=== PATIENT | male | born 1955 | race Caucasian/White ===

== ENCOUNTER 2018-08-11 23:07 | Inpatient (IN) | payer MEDICARE, OTHER ==
[~2018-08-11] VITALS: Ht 167.6 cm; Wt 63.4 kg
[~2018-08-11 23:07] MED LIST: AMLODIPINE; BENAZEPRIL; LORAZEPAM; METOPROLOL
[2018-08-11] MEDS ORDERED: SOD CHLORIDE 0.9% 500 ML IV STA (23:13)
[2018-08-11] MEDS ORDERED: HYDROmorphONE 1 MG/ML SYG IV STA (23:13)
[2018-08-11] MEDS ORDERED: ONDANSETRON 4 MG INJ IV STA (23:13)
[2018-08-11] MEDS ORDERED: HYDROmorphONE 2 MG/ML SYG IV STA (23:47)
[2018-08-12] MEDS: SOD CHLORIDE 0.9% 1,000 ML IV SCH ×2 (00:58→15:26)
[2018-08-12] MEDS ORDERED: NACL 0.9% 3 ML SYG IV SCH (01:00)
[2018-08-12] MEDS ORDERED: BISACODYL (EC) 5 MG TAB PO PRN (01:00)
[2018-08-12] MEDS ORDERED: ONDANSETRON 4 MG INJ IV PRN (01:00)
[2018-08-12] MEDS ORDERED: DOCUSATE SODIUM 100 MG CAP PO PRN (01:00)
[2018-08-12] MEDS ORDERED: ACETAMINOPHEN 325 MG TAB PO PRN (01:00)
[2018-08-12] MEDS ORDERED: HYDROmorphONE 0.5 MG/0.5 ML SYG IV PRN (01:00)
[2018-08-12] MEDS: HYDROCODONE/APAP (10/325) TAB PO SCH ×4 (01:05→18:30)
--- NOTE | 2018-08-12 01:19 | ERD ---
ER Documentation Chief Complaint Chief Complaint BIBRA.,fr. home,GLF,L leg weakness w/ deformity noted,last chemo IV 08/10/18 HPI Is a 63-year-old male with metastatic cancer comes in with complaints of ground- level fall and left leg deformity via EMS. Apparently patient was walking and at the use leg essentially crumpled underneath him. There is no direct trauma no fall. Apparently his leg just "gave out". Complains of pain. Given fentanyl on route. No head trauma. No loss of consciousness. ROS All systems reviewed and are negative except as per history of present illness. Medications Home Meds Reported Medications [Lorazepam] No Conflict Check 05/04/10 [Benazepril] No Conflict Check 05/04/10 [Amlodipine] No Conflict Check 05/04/10 Metoprolol 05/04/10 Allergies Allergies: Coded Allergies: No Known Allergy (Verified , 05/14/10) PMhx/Soc History of Surgery: No Anesthesia Reaction: No Hx Neurological Disorder: No Hx Respiratory Disorders: No Hx Cardiac Disorders: Yes (HTN, HIGH CHOLESTEROL) Hx Psychiatric Problems: No Hx Miscellaneous Medical Probl: Yes (STAGE 4 LUNG CA) Hx Alcohol Use: No Hx Substance Use: No Hx Tobacco Use: No Smoking Status: Never smoker Physical Exam Vitals Vital Signs Date Temp Pulse Resp B/P (MAP) Pulse Ox O2 O2 Flow FiO2 Time Delivery Rate 08/11/18 98.8 122 18 148/98 100 23:14 (115) 08/11/18 115 15 184/113 100 Room Air 23:13 (136) Physical Exam Const: No acute distress Head: Atraumatic Eyes: Normal Conjunctiva ENT: Normal External Ears, Nose and Mouth. Neck: Full range of motion. No meningismus. Resp: Clear to auscultation bilaterally Cardio: Regular rate and rhythm, no murmurs Abd: Soft, non tender, non distended. Normal bowel sounds Skin: No petechiae or rashes Back: No midline or flank tenderness Ext: No cyanosis, or edema Neur: Awake and alert Psych: Normal Mood and Affect Result Diagram: 08/11/18 2351 08/11/18 2351 Results 24 hrs Laboratory Tests Test 08/11/18 23:51 White Blood Count 5.3 10^3/ul Red Blood Count 3.79 10^6/ul Hemoglobin 11.5 g/dl Hematocrit 34.8 % Mean Corpuscular Volume 91.8 fl Mean Corpuscular Hemoglobin 30.3 pg Mean Corpuscular Hemoglobin Concent 33.0 g/dl Red Cell Distribution Width 13.3 % Platelet Count 91 10^3/UL Mean Platelet Volume 8.9 fl Immature Granulocytes % 0.200 % Neutrophils % 65.6 % Lymphocytes % 30.4 % Monocytes % 2.3 % Eosinophils % 1.3 % Basophils % 0.2 % Nucleated Red Blood Cells % 0.0 /100WBC Immature Granulocytes # 0.010 10^3/ul Neutrophils # 3.5 10^3/ul Lymphocytes # 1.6 10^3/ul Monocytes # 0.1 10^3/ul Eosinophils # 0.1 10^3/ul Basophils # 0.0 10^3/ul Nucleated Red Blood Cells # 0.0 10^3/ul Prothrombin Time 13.0 Sec Prothrombin Time Ratio 1.0 INR International Normalized Ratio 0.97 Activated Partial Thromboplast Time 22.7 Sec Sodium Level 138 mmol/L Potassium Level 3.6 mmol/L Chloride Level 103 mmol/L Carbon Dioxide Level 27 mmol/L Anion Gap 8 Blood Urea Nitrogen 16 mg/dl Creatinine 0.86 mg/dl Est Glomerular Filtrat Rate mL/min > 60 mL/min Glucose Level 111 mg/dl Calcium Level 9.5 mg/dl Total Bilirubin 0.8 mg/dl Direct Bilirubin 0.00 mg/dl Indirect Bilirubin 0.8 mg/dl Aspartate Amino Transf (AST/SGOT) 64 IU/L Alanine Aminotransferase (ALT/SGPT) 67 IU/L Alkaline Phosphatase 49 IU/L Total Protein 7.1 g/dl Albumin 4.0 g/dl Globulin 3.10 g/dl Albumin/Globulin Ratio 1.29 Lipase 104 U/L Current Medications Medications Dose Sig/Lidia Start Time Status Last (Trade) Ordered Route PRN Stop Time Admin Dose Reason Admin Sodium 500 ml @ Q1H STAT 08/11/18 DC 08/11/18 Chloride 500 mls/hr IV 23:13 23:26 08/12/18 00:12 1 mg ONCE STAT 08/11/18 DC 08/11/18 Hydromorphone IV 23:13 23:25 HCl 08/11/18 23:14 (Dilaudid) Ondansetron 4 mg ONCE STAT 08/11/18 DC 08/11/18 HCl (Zofran IV 23:13 23:25 Inj) 08/11/18 23:14 2 mg ONCE STAT 08/11/18 DC 08/11/18 Hydromorphone IV 23:47 23:54 HCl 08/11/18 23:49 (Dilaudid) Sodium 1,000 ml @ [id number] IV 08/12/18 08/12/18 Chloride 80 mls/hr 00:43 00:58 IV Flush 3 ml PER 08/12/18 (NS 3 ml) PROTOCOL IV 01:00 Ondansetron 4 mg Q6H PRN 08/12/18 HCl (Zofran IV 01:00 Inj) NAUSEA/VOMITI NG 650 mg Q6H PRN 08/12/18 Acetaminophen PO .PAIN 1-3 01:00 (Tylenol OR TEMP Tab) 1 mg Q4H PRN 08/12/18 Hydromorphone IV .SEVERE 01:00 HCl PAIN 7-10 (Dilaudid) Docusate 100 mg Q12H PRN 08/12/18 Sodium PO 01:00 (Colace) .CONSTIPATION Bisacodyl 5 mg DAILY PRN 08/12/18 (Dulcolax) PO 01:00 .CONSTIPATION 1 tab Q6H PO 08/12/18 08/12/18 Acetaminophen 01:00 01:05 / Hydrocodone Bitart (Randolph ()) Procedures/MDM X-ray Femur 2V Interpreted by me: Bones: Midshaft fracture with moderate angulation and displacement Joints: [No dislocation] Foreign body: [None] Medical decision makin-year-old male who looks to be a pathological fracture. Patient will be admitted to hospitalist for further evaluation management. Orthopedics on-call consult was placed Departure Diagnosis: Primary Impression: Femur fracture Encounter type: initial encounter Femur location: unspecified portion of femur Fracture type: closed Fracture morphology: unspecified fracture morphology Laterality: unspecified laterality Qualified Codes: S72.90XA - Unspecified fracture of unspecified femur, initial encounter for closed fracture Condition: SULAIMAN Phillips Aug 12, 2018 01:19
[2018-08-12 02:11] VITALS: Ht 167.6 cm; Wt 63.4 kg
[2018-08-12] MEDS ORDERED: METO-336 PO (02:20)
[2018-08-12] MEDS ORDERED: FOLI-49 PO (02:20)
[2018-08-12] MEDS ORDERED: RSV10T PO (02:20)
[2018-08-12] MEDS ORDERED: ZOLP10TA5 PO (02:20)
[2018-08-12 02:35] VITALS: BP 169/95; PULSE 103; RESP 18
[2018-08-12] MEDS ORDERED: ZOLPIDEM 5 MG TAB PO PRN (04:30)
--- NOTE | 2018-08-12 04:31 | HP ---
Date/Time of Note Date/Time of Note DATE: 08/12/18 TIME: 04:16 Assessment/Plan VTE Prophylaxis SCD applied (from Nsg): Yes Pharmacological prophylaxis: NA/contraindicated Pharm contraindication: low risk/ambulating Lines/Catheters IV Catheter Type (from Nrsg): Peripheral IV Urinary Cath still in place: No Assessment/Plan Hospital Course This is a 63-year-old male being admitted to the [facility] floor for: #1 acute pathological left femur fracture: X-ray of the left lower extremity: Acute, closed, comminuted distal diaphyseal fracture of the left femur with valgus and posterior angulation of the major distal fracture fragment. Suspected lipohemarthrosis of the suprapatellar bursa. Given patient's history of chemotherapy will obtain a chest x-ray as well as an echocardiogram to assess heart function. Will trend cardiac enzymes as well. Will obtain a cardiology consultation for preop clearance. Dr. Evans of orthopedics has been consulted by the ER. Pain control. Bedrest. The patient n.p.o. at the current time. IV fluid hydration normal saline. Family is also considering transfer to [facility] after they get in touch with the patient's doctors there. If there is an accepting physician there we will help facilitate transfer, consult case management. #2 lung cancer: With metastasis. The patient sees assembler product a little vent his hospital. Currently on chemotherapy. Further management as per outpatient hematology. #3 diabetes mellitus: Currently not on any medications, will check a hemoglobin A1c #4 hypertension: We will resume patient's home blood pressure medication #5 DVT GI prophylaxis: SCDs to the right lower extremity, no GI prophylaxis indicated Further treatment strategy will be implemented as per the clinical course Result Diagram: 08/11/18 2351 08/11/18 2351 Results 24hrs Laboratory Tests Test 08/11/18 23:51 White Blood Count 5.3 Red Blood Count 3.79 L Hemoglobin 11.5 L Hematocrit 34.8 L Mean Corpuscular Volume 91.8 Mean Corpuscular Hemoglobin 30.3 Mean Corpuscular Hemoglobin Concent 33.0 Red Cell Distribution Width 13.3 Platelet Count 91 L Mean Platelet Volume 8.9 Immature Granulocytes % 0.200 Neutrophils % 65.6 Lymphocytes % 30.4 Monocytes % 2.3 Eosinophils % 1.3 Basophils % 0.2 Nucleated Red Blood Cells % 0.0 Immature Granulocytes # 0.010 Neutrophils # 3.5 Lymphocytes # 1.6 Monocytes # 0.1 L Eosinophils # 0.1 Basophils # 0.0 Nucleated Red Blood Cells # 0.0 Prothrombin Time 13.0 Prothrombin Time Ratio 1.0 INR International Normalized Ratio 0.97 Activated Partial Thromboplast Time 22.7 L Sodium Level 138 Potassium Level 3.6 Chloride Level 103 Carbon Dioxide Level 27 Anion Gap 8 Blood Urea Nitrogen 16 Creatinine 0.86 Est Glomerular Filtrat Rate mL/min > 60 Glucose Level 111 Calcium Level 9.5 Total Bilirubin 0.8 Direct Bilirubin 0.00 Indirect Bilirubin 0.8 Aspartate Amino Transf (AST/SGOT) 64 H Alanine Aminotransferase (ALT/SGPT) 67 Alkaline Phosphatase 49 Total Protein 7.1 Albumin 4.0 Globulin 3.10 Albumin/Globulin Ratio 1.29 Lipase 104 HPI/ROS Admit Date/Time Admit Date/Time Aug 12, 2018 at 00:41 Hx of Present Illness Chief complaint: Left leg pain, deformity This is a 63-year-old male with a history of lung cancer with metastasis who comes in via EMS after ground-level fall. History was obtained from the family member at the bedside. Apparently when the patient was walking he started feeling pain in his leg and then he fell on the floor. There was no direct trauma prior to the fall. He fell on a wooden floor. He did receive fentanyl by the EMS for pain. He denies any head pain or loss of consciousness. Patient is currently receiving chemotherapy under the care of his assembler product at [facility]. He is last chemotherapy treatment was within the last 24-48 hours according to the family member. The family member at the bedside did state that she and her family would like the patient transferred to [facility] as he receives all of his care there and the doctors know him there. Allergies: NKDA Medications: See JUN ROS const: As per HPI Eyes : No pain discharge or redness or change in visual acuity ENT: No pain, sore throat, congestion, congestion, dysphagia or discharge Respiratory: No shortness of breath, cough, sputum, wheezing, or pleuritic pain Cardiovascular: No chest pain, palpitation, PND, or edema GI : no change in appetite, abdominal pain, nausea, vomiting, diarrhea, constipation, or change in the color his stool Genitourinary: No dysuria, hematuria, flank pain , discharge or CVA tenderness Musculoskeletal: As per HPI Skin: No rash, bruising or hives Neuro: No headache, dizziness, syncope, seizure, focal weakness Endocrine: No polyuria, polydipsia, temperature intolerance Psych: No hallucination, depression, anxiety or suicidal ideation PMH/Family/Social Past Medical History Diabetes mellitus, lung cancer with metastasis, hypertension Medications Current Medications Sodium Chloride 1,000 ml @ 80 mls/hr [id number] IV Last administered on 08/12/18at 00:58; Admin Dose 80 MLS/HR; Start 08/12/18 at 00:43 IV Flush (NS 3 ml) 3 ml PER PROTOCOL IV ; Start 08/12/18 at 01:00 Ondansetron HCl (Zofran Inj) 4 mg Q6H PRN IV NAUSEA/VOMITING; Start 08/12/18 at 01:00 Acetaminophen (Tylenol Tab) 650 mg Q6H PRN PO .PAIN 1-3 OR TEMP; Start 08/12/18 at 01:00 Docusate Sodium (Colace) 100 mg Q12H PRN PO .CONSTIPATION; Start 08/12/18 at 01:00 Bisacodyl (Dulcolax) 5 mg DAILY PRN PO .CONSTIPATION; Start 08/12/18 at 01:00 Acetaminophen/ Hydrocodone Bitart (Ebony (10/325)) 1 tab Q6H PO Last administered on 08/12/18at 01:05; Admin Dose 1 TAB; Start 08/12/18 at 01:00 Hydromorphone HCl (Dilaudid) 1 mg Q3H PRN IV .SEVERE PAIN 7-10; Start 08/12/18 at 07:00; Status UNV Coded Allergies: No Known Allergy (Unverified , 08/12/18) Past Surgical History Past Surgical Hx: no surgical history Family History Significant Family History: no pertinent family hx Social History Alcohol Use: none Smoking Status: Current every day smoker Drug Use: none Exam/Review of Systems Vital Signs Vitals Vital Signs Date Temp Pulse Resp B/P (MAP) Pulse Ox O2 O2 Flow FiO2 Time Delivery Rate 08/12/18 98.8 103 18 169/95 98 02:35 (119) 08/12/18 Room Air 01:00 Intake and Output 08/11/18 08/11/18 08/12/18 1515:00 23:00 07:00 OutputOutput Total 700 ml BalanceBalance -700 ml Exam Exam General: Patient is currently lying in bed he does appear to be in moderate distress from pain in his leg HEENT: Atraumatic, normocephalic. The pupils are equal, round and reactive. Extraocular motor are intact Neck: Supple with full range of motion. No rigidity or meningismus Chest: Nontender Lungs: Clear to auscultation bilaterally no crackles rales or wheezing Heart: Normal S1-S2, Regular rhythm and rate. No murmur, S3, or S4 Abdomen: Soft , nontender, nondistended , bowel sounds are present. No guarding no rebound tenderness , No masses or organomegaly. No costovertebral temporal angle mass Extremities: Left lower extremity in Myron wrap, deformity noted of the left femur., Pulses intact, warm to touch, patient is able to wiggle his toes. Neurologic: Normal mental status, speech normal, cranial nerves II through XII are intact, motor and sensory are intact, Additional Comments PROCEDURE: XR Femur. CLINICAL INDICATION: Left thigh pain following a fall TECHNIQUE: AP and cross-table lateral views of the left femur were performed, a total of 5 images sent to the PACS for review. COMPARISON: None. FINDINGS: Comminuted fracture of the distal femoral diaphysis is present. There is posterior and valgus angulation of the major distal femoral fracture fragment. No joint dislocation is. No lytic or blastic lesions are evident. Soft tissue swelling is present. There is diffuse atherosclerotic calcification of the femoral system. A lipohemarthrosis of the suprapatellar bursa is suspected. RPTAT:HJJR IMPRESSION: 1. Acute, closed, comminuted distal diaphyseal fracture of the left femur with valgus and posterior angulation of the major distal fracture fragment. 2. Suspected lipohemarthrosis of the suprapatellar bursa. 3. Diffuse atherosclerotic calcification of the femoral arterial system Physician Gisele Date Time Electronically viewed and signed by Physician Gisele on 08/12/2018 01:15 JR/ CC: SULAIMAN DORSEY [id number] PROCEDURE: XR Tibia and Fibula. CLINICAL INDICATION: Trauma. Left leg pain following a fall TECHNIQUE: AP and cross-table lateral of the left tibia and fibula were obtained, a total of 4 images sent to the PACS for review. COMPARISON: Left femur series 08/11/2018 FINDINGS: There is normal mineralization and alignment. No fracture or osseous lesion is identified. There are normal soft tissues without evidence of soft tissue swelling or radiopaque foreign body. RPTAT:HJJR IMPRESSION: 1. Unremarkable left tibia and fibula series without acute left leg abnormality. 2. For further information regarding the distal femoral fracture, please refer to the separately issued report. Physician Gisele Date Time Electronically viewed and signed by Physician Gisele on 08/12/2018 01:16 JR/ CC: SULAIMAN DORSEY [id number] MARI VARGAS Aug 12, 2018 04:27
[2018-08-12 07:18] VITALS: BP 170/81; PULSE 88; RESP 17
[2018-08-12] MEDS ORDERED: METOPROLOL (XL) 100 MG TAB PO SCH (09:00)
[2018-08-12] MEDS ORDERED: FOLIC ACID 1 MG TAB PO SCH (09:00)
[2018-08-12] MEDS: HYDROmorphONE 0.5 MG/0.5 ML SYG IV PRN ×2 (11:06→16:27)
--- NOTE | 2018-08-12 11:51 | RADRPT ---
Echocardiogram Report Patient Name: JAZLYN REALatient ID: [id number] : 1955 (63y 7m)Study Date: 08/12/2018 8:13:06 AM Gender: MAccession #: [id number] Tech: [facility] Location: [id number] Ref.Physician: MARI VARGAS Height(Cm): BSA: Weight(Kg): Quality: AdequateAccount #: Procedures: Echocardiographic Report: Transthoracic echocardiogram with complete 2D, M-Mode, and doppler examination. Indications: Pre-op. Measurements: 2D/M Mode Doppler Measurement Value Normal Range Measurement Value Normal Range LVIDd 2D 4.1 [ 4.2 - 5.8 ] cm AV Peak Shmuel 1.4 [ 100.0 - 170.0 ] cm/sec LVIDs 2D 2.8 [ 2.5 - 4.0 ] cm AV Peak PG 8.0 [ 2.0 - 9.0 ] mmHg LVPWd 2D 1.1 [ 0.6 - 1.0 ] cm LVOT Peak Shmuel 0.9 [ 70.0 - 110.0 ] cm/sec IVSd 2D 1.4 [ 0.6 - 1.0 ] cm LVOT Peak PG 3.0 [ 2.0 - 6.0 ] mmHg AoR Diam 2D 2.7 [ 2.6 - 3.4 ] cm MV E Peak Shmuel 0.7 [ 60.0 - 130.0 ] cm/sec EDV 2D 73.4 [ 62.0 - 150.0 ] ml MV A Peak Shmuel 0.8 [ 100.0 - 120.0 ] cm/sec ESV 2D 28.3 [ 21.0 - 61.0 ] ml MV E/A 0.9 [ 0.8 - 1.5 ] ratio EF 2D 61.4 [ 52.0 - 72.0 ] percent MV Decel Time 176 [ 104 - 258 ] msec LA Dimen 2D 3.0 [ 3.0 - 4.0 ] cm Lat E` Shmuel 0.1 [ 10.0 - 15.0 ] cm/sec Lateral E/E` 5.9 [ 1.0 - 2.0 ] ratio MV E/A 0.9 [ 0.8 - 1.5 ] ratio TR Peak Shmuel 2.4 [ 100.0 - 280.0 ] cm/sec TR Peak PG 23.0 mmHg RVSP 26.0 [ 10.0 - 36.0 ] mmHg Findings: Left Ventricle: Normal left ventricular systolic function. Normal left ventricular cavity size. Mild asymmetric septal hypertrophy. Ejection fraction is visually estimated at 60 %. Abnormal Diastolic Function. Right Ventricle: Normal right ventricular size. Normal right ventricular systolic function. Left Atrium: The left atrium is normal in size. Right Atrium: The right atrium is normal in size. Mitral Valve: Mild mitral leaflet calcification. Mild mitral annular calcification. Trace mitral regurgitation. Aortic Valve: Aortic sclerosis without significant stenosis. No aortic regurgitation. Tricuspid Valve: Normal appearance of the tricuspid valve. Estimated peak PA systolic pressure 26 mmHg. There is trace tricuspid regurgitation. Pericardium: Normal pericardium with no significant pericardial effusion. Aorta: Normal aortic root. IVC: Normal size and normal respiratory collapse consistent with normal right atrial pressure. Conclusions: Normal left ventricular systolic function. Normal left ventricular cavity size. Mild asymmetric septal hypertrophy. Ejection fraction is visually estimated at 60 %. Abnormal Diastolic Function. Normal right ventricular size. Normal right ventricular systolic function. The left atrium is normal in size. The right atrium is normal in size. No significant valvular stenosis or regurgitation seen. Normal pericardium with no significant pericardial effusion. Electronically Signed By: Emir Cordova 2018-08-12 11:50:31 PDT
[2018-08-12 11:53] VITALS: BP 148/77; PULSE 79
--- NOTE | 2018-08-12 12:13 | CONS ---
Assessment/Plan Assessment/Plan Hospital Course (Demo Recall) Preoperative cardiac risk stratification Preserved ejection fraction Fracture lower extremity, presumably pathological Lung cancer with metastases Hypertension -Patient with progressive worsening pain in his lower extremity and fall with current fracture, presumably pathological -Patient able to Michelle prior to this procedure without exertional chest pain, ECG with no significant ischemic abnormalities, echocardiogram with preserved ejection fraction -Given risk factors, patient is at an intermediate risk for any untoward cardiac events for orthopedic surgery. Benefits likely outweigh the risks. Consultation Date/Type/Reason Admit Date/Time Aug 12, 2018 at 00:41 Type of Consult Cardiology Reason for Consultation Preoperative cardiac risk stratification Date/Time of Note DATE: 08/12/18 TIME: 12:10 Hx of Present Illness This is a 63-year-old male with past medical history of lung cancer with metastases, hypertension presents after ground-level fall with worsening lower extremity pain. Patient found to have a fracture. There was no loss of consciousness with the fall. Cardiology consult was requested for preoperative risk stratification. Patient able to do activities around the house, he could climb 1 flight of stairs but stopped because of fatigue and leg pain. He denies exertional chest pain. He has been having shortness of breath with exertion for many months, even prior to his diagnosis of lung cancer. He is currently undergoing his second round of chemotherapy. He otherwise denies any cardiac history, including cardiac procedures, myocardial infarction. 12 point review of systems was performed with all pertinent positives and negatives mentioned above and all else is negative Past Medical History Hypertension Lung cancer Home Meds Reported Medications Zolpidem Tartrate* (Zolpidem Tartrate*) 10 Mg Tablet, 10 MG PO QHS PRN for INSOMNIA, #30 TAB 08/12/18 Metoprolol Succinate* (Toprol XL*) 100 Mg Tab.sr.24h, 100 MG PO DAILY, #30 TAB 08/12/18 Rosuvastatin Calcium* (Crestor*) 10 Mg Tablet, 10 MG PO QHS, #30 TAB 08/12/18 Folic Acid* (Folic Acid*) 1 Mg Tablet, 1 MG PO DAILY for 30 Days 08/12/18 Discontinued Reported Medications [Lorazepam] No Conflict Check 05/04/10 [Benazepril] No Conflict Check 05/04/10 [Amlodipine] No Conflict Check 05/04/10 Metoprolol 05/04/10 Medications Current Medications Sodium Chloride 1,000 ml @ 80 mls/hr [id number] IV Last administered on 08/12/18at 00:58; Admin Dose 80 MLS/HR; Start 08/12/18 at 00:43 IV Flush (NS 3 ml) 3 ml PER PROTOCOL IV ; Start 08/12/18 at 01:00 Ondansetron HCl (Zofran Inj) 4 mg Q6H PRN IV NAUSEA/VOMITING; Start 08/12/18 at 01:00 Acetaminophen (Tylenol Tab) 650 mg Q6H PRN PO .PAIN 1-3 OR TEMP; Start 08/12/18 at 01:00 Docusate Sodium (Colace) 100 mg Q12H PRN PO .CONSTIPATION; Start 08/12/18 at 01:00 Bisacodyl (Dulcolax) 5 mg DAILY PRN PO .CONSTIPATION; Start 08/12/18 at 01:00 Acetaminophen/ Hydrocodone Bitart ([place] (10/325)) 1 tab Q6H PO Last administered on 08/12/18at 06:28; Admin Dose 1 TAB; Start 08/12/18 at 01:00 Hydromorphone HCl (Dilaudid) 1 mg Q3H PRN IV .SEVERE PAIN 7-10 Last administered on 08/12/18at 11:06; Admin Dose 1 MG; Start 08/12/18 at 07:00 Folic Acid (Folic Acid) 1 mg DAILY PO Last administered on 08/12/18at 09:38; Admin Dose 1 MG; Start 08/12/18 at 09:00 Metoprolol Succinate (Toprol Xl) 100 mg DAILY PO Last administered on 08/12/18at 10:58; Admin Dose 100 MG; Start 08/12/18 at 09:00 Zolpidem Tartrate (Ambien) 10 mg QHS PRN PO INSOMNIA; Start 08/12/18 at 04:30 Atorvastatin Calcium (Lipitor) 40 mg DAILY@21 PO ; Start 08/12/18 at 21:00 Allergies: Coded Allergies: No Known Allergy (Unverified , 08/12/18) Past Surgical History Past Surgical Hx: no surgical history Family History Significant Family History: no pertinent family hx Social History Alcohol Use: none Smoking Status: Current every day smoker Drug Use: none Exam/Review of Systems Vital Signs Vitals Vital Signs Date Temp Pulse Resp B/P (MAP) Pulse Ox O2 O2 Flow FiO2 Time Delivery Rate 08/12/18 79 148/77 11:53 (100) 08/12/18 98.3 17 100 Room Air 07:18 Intake and Output 08/11/18 08/11/18 08/12/18 1515:00 23:00 07:00 IntakeIntake Total 450 ml OutputOutput Total 700 ml BalanceBalance -250 ml Exam Constitutional: alert, oriented, frail (No apparent distress) Head: normocephalic Respiratory: other (Coarse breath sounds bilaterally, no wheezing) Cardiovascular: regular rate and rhythm (S1-S2 heard) Gastrointestinal: soft, non-tender, bowel sounds Extremities: other (No significant edema) Labs Result Diagram: 08/12/1843108/12/18 0432 Results 24hrs Laboratory Tests Test 08/11/18 23:51 08/12/18 04:32 White Blood Count 5.3 5.5 Red Blood Count 3.79 L 3.56 L Hemoglobin 11.5 L 10.8 L Hematocrit 34.8 L 33.1 L Mean Corpuscular Volume 91.8 93.0 Mean Corpuscular Hemoglobin 30.3 30.3 Mean Corpuscular Hemoglobin Concent 33.0 32.6 Red Cell Distribution Width 13.3 13.6 Platelet Count 91 L 84 L Mean Platelet Volume 8.9 9.2 Immature Granulocytes % 0.200 0.200 Neutrophils % 65.6 80.9 H Lymphocytes % 30.4 16.3 Monocytes % 2.3 1.1 Eosinophils % 1.3 1.1 Basophils % 0.2 0.4 Nucleated Red Blood Cells % 0.0 0.0 Immature Granulocytes # 0.010 0.010 Neutrophils # 3.5 4.5 Lymphocytes # 1.6 0.9 Monocytes # 0.1 L 0.1 L Eosinophils # 0.1 0.1 Basophils # 0.0 0.0 Nucleated Red Blood Cells # 0.0 0.0 Prothrombin Time 13.0 Prothrombin Time Ratio 1.0 INR International Normalized Ratio 0.97 Activated Partial Thromboplast Time 22.7 L Sodium Level 138 138 Potassium Level 3.6 3.8 Chloride Level 103 101 Carbon Dioxide Level 27 29 Anion Gap 8 8 Blood Urea Nitrogen 16 13 Creatinine 0.86 0.66 Est Glomerular Filtrat Rate mL/min > 60 > 60 Glucose Level 111 115 Calcium Level 9.5 8.7 Total Bilirubin 0.8 0.6 Direct Bilirubin 0.00 0.00 Indirect Bilirubin 0.8 0.6 Aspartate Amino Transf (AST/SGOT) 64 H 58 H Alanine Aminotransferase (ALT/SGPT) 67 66 Alkaline Phosphatase 49 46 Total Protein 7.1 6.4 Albumin 4.0 3.7 Globulin 3.10 2.70 Albumin/Globulin Ratio 1.29 1.37 Lipase 104 Magnesium Level 1.3 L Creatine Kinase 77 Creatine Kinase Index 0.5 Creatinine Kinase MB (Mass) 0.42 Troponin I 0.015 Imaging Imaging ECG demonstrates sinus rhythm 84 bpm, QRS 132 ms, right bundle branch block, nonspecific ST abnormalities Medications Medications Current Medications Sodium Chloride 1,000 ml @ 80 mls/hr [id number] IV Last administered on 08/12/18at 00:58; Admin Dose 80 MLS/HR; Start 08/12/18 at 00:43 IV Flush (NS 3 ml) 3 ml PER PROTOCOL IV ; Start 08/12/18 at 01:00 Ondansetron HCl (Zofran Inj) 4 mg Q6H PRN IV NAUSEA/VOMITING; Start 08/12/18 at 01:00 Acetaminophen (Tylenol Tab) 650 mg Q6H PRN PO .PAIN 1-3 OR TEMP; Start 08/12/18 at 01:00 Docusate Sodium (Colace) 100 mg Q12H PRN PO .CONSTIPATION; Start 08/12/18 at 01:00 Bisacodyl (Dulcolax) 5 mg DAILY PRN PO .CONSTIPATION; Start 08/12/18 at 01:00 Acetaminophen/ Hydrocodone Bitart ([place] (10/325)) 1 tab Q6H PO Last administered on 08/12/18at 06:28; Admin Dose 1 TAB; Start 08/12/18 at 01:00 Hydromorphone HCl (Dilaudid) 1 mg Q3H PRN IV .SEVERE PAIN 7-10 Last administered on 08/12/18at 11:06; Admin Dose 1 MG; Start 08/12/18 at 07:00 Folic Acid (Folic Acid) 1 mg DAILY PO Last administered on 08/12/18at 09:38; Admin Dose 1 MG; Start 08/12/18 at 09:00 Metoprolol Succinate (Toprol Xl) 100 mg DAILY PO Last administered on 08/12/18at 10:58; Admin Dose 100 MG; Start 08/12/18 at 09:00 Zolpidem Tartrate (Ambien) 10 mg QHS PRN PO INSOMNIA; Start 08/12/18 at 04:30 Atorvastatin Calcium (Lipitor) 40 mg DAILY@21 PO ; Start 08/12/18 at 21:00 Emir Cordova DO Aug 12, 2018 12:13
[2018-08-12 15:26] VITALS: BP 163/81; PULSE 69; RESP 18
--- NOTE | 2018-08-12 16:24 | DS ---
Date/Time of Note Date/Time of Note DATE: 08/12/18 TIME: 16:17 Discharge Summary Admission/Discharge Info Admit Date/Time Aug 12, 2018 at 00:41 Discharge Date/Time Aug 12, 2018 Discharge Diagnosis Distal femur fracture, likely pathologic. Metastatic lung cancer Patient Condition: Guarded Hx of Present Illness Chief complaint: Left leg pain, deformity This is a 63-year-old male with a history of lung cancer with metastasis who comes in via EMS after ground-level fall. History was obtained from the family member at the bedside. Apparently when the patient was walking he started feeling pain in his leg and then he fell on the floor. There was no direct trauma prior to the fall. He fell on a wooden floor. He did receive fentanyl by the EMS for pain. He denies any head pain or loss of consciousness. Patient is currently receiving chemotherapy under the care of his contact centre supervisor at [facility]. He is last chemotherapy treatment was within the last 24-48 hours according to the family member. The family member at the bedside did state that she and her family would like the patient transferred to [facility] as he receives all of his care there and the doctors know him there. Allergies: NKDA Medications: See [facility] Course Unclear why the patient was admitted from the ED here. When I examined in the patient in the morning he was awake, alert, in no acute distress. Vitals were good, labs were unremarkable except for moderate anemia with Hgb 10.8. The patient would benefit from continued care at [facility] where he has had most of his care. He would benefit from evaluation by an orthopedic surgeon specialized in oncology. We will plan to transfer him to [facility] along with records and the CDs of our [facility]. I spoke to Dr. Gutierrez and he accepted the patient. Home Meds Reported Medications Zolpidem Tartrate* (Zolpidem Tartrate*) 10 Mg Tablet, 10 MG PO QHS PRN for INSOMNIA, #30 TAB 08/12/18 Metoprolol Succinate* (Toprol XL*) 100 Mg Tab.sr.24h, 100 MG PO DAILY, #30 TAB 08/12/18 Rosuvastatin Calcium* (Crestor*) 10 Mg Tablet, 10 MG PO QHS, #30 TAB 08/12/18 Folic Acid* (Folic Acid*) 1 Mg Tablet, 1 MG PO DAILY for 30 Days 08/12/18 Discontinued Reported Medications [Lorazepam] No Conflict Check 05/04/10 [Benazepril] No Conflict Check 05/04/10 [Amlodipine] No Conflict Check 05/04/10 Metoprolol 05/04/10 Primary Care Provider Maddie Gary MD Time spent on discharge: > 30 minutes Pending Labs Laboratory Tests Test 08/11/18 23:51 08/12/18 04:32 08/12/18 10:07 White Blood Count 5.3 5.5 10^3/ul (4.8-10.8) 10^3/ul (4.8-10.8) Red Blood Count 3.79 3.56 10^6/ul (4.70-6.10) 10^6/ul (4.70-6.10 ) Hemoglobin 11.5 10.8 g/dl (14.0-18.0) g/dl (14.0-18.0) Hematocrit 34.8 % (42.0-52.0) 33.1 % (42.0-52.0) Mean Corpuscular 91.8 93.0 Volume fl (82.0-101.0) fl (82.0-101.0) Mean Corpuscular 30.3 pg (29.0-33.0) 30.3 Hemoglobin pg (29.0-33.0) Mean Corpuscular 33.0 32.6 Hemoglobin Concent g/dl (32.0-37.0) g/dl (32.0-37.0) Red Cell 13.3 % (11.5-14.5) 13.6 % (11.5-14.5) Distribution Width Platelet Count 91 84 10^3/UL (140-415) 10^3/UL (140-415) Mean Platelet 8.9 fl (7.4-10.4) 9.2 fl (7.4-10.4) Volume Immature 0.200 0.200 Granulocytes % % (0.001-0.429) % (0.001-0.429) Neutrophils % 65.6 % (39.0-77.0) 80.9 % (39.0-77.0) Lymphocytes % 30.4 % (15.0-51.0) 16.3 % (15.0-51.0) Monocytes % 2.3 % (0.0-11.0) 1.1 % (0.0-11.0) Eosinophils % 1.3 % (0.0-7.0) 1.1 % (0.0-7.0) Basophils % 0.2 % (0.0-2.0) 0.4 % (0.0-2.0) Nucleated Red Blood 0.0 0.0 Cells % /100WBC (0.0-0.0) /100WBC (0.0-0.0) Immature 0.010 0.010 Granulocytes # 10^3/ul (0.0-0.031) 10^3/ul (0.0-0.031 ) Neutrophils # 3.5 4.5 10^3/ul (1.6-7.5) 10^3/ul (1.6-7.5) Lymphocytes # 1.6 0.9 10^3/ul (0.8-2.9) 10^3/ul (0.8-2.9) Monocytes # 0.1 0.1 10^3/ul (0.3-0.9) 10^3/ul (0.3-0.9) Eosinophils # 0.1 0.1 10^3/ul (0.0-0.5) 10^3/ul (0.0-0.5) Basophils # 0.0 0.0 10^3/ul (0.0-0.1) 10^3/ul (0.0-0.1) Nucleated Red Blood 0.0 0.0 Cells # 10^3/ul (0.0-0.0) 10^3/ul (0.0-0.0) Prothrombin Time 13.0 Sec (11.9-14.9) Prothrombin Time 1.0 Ratio INR International 0.97 Normalized Ratio Activated 22.7 Partial Thromboplas Sec (23.0-35.0) t Time Sodium Level 138 138 mmol/L (135-144) mmol/L (135-144) Potassium Level 3.6 3.8 mmol/L (3.5-5.1) mmol/L (3.5-5.1) Chloride Level 103 mmol/L (97-110) 101 mmol/L (97-110) Carbon Dioxide 27 mmol/L (21-31) 29 mmol/L (21-31) Level Anion Gap 8 (5-13) 8 (5-13) Blood Urea 16 mg/dl (7-20) 13 mg/dl (7-20) Nitrogen Creatinine 0.86 0.66 mg/dl (0.61-1.24) mg/dl (0.61-1.24) Est Glomerular > 60 mL/min (>60) > 60 mL/min (>60) Filtrat Rate mL/min Glucose Level 111 mg/dl (70-220) 115 mg/dl (70-220) Calcium Level 9.5 8.7 mg/dl (8.4-10.2) mg/dl (8.4-10.2) Total Bilirubin 0.8 mg/dl (0.2-1.3) 0.6 mg/dl (0.2-1.3) Direct Bilirubin 0.00 0.00 mg/dl (0.00-0.20) mg/dl (0.00-0.20) Indirect Bilirubin 0.8 mg/dl (0-1.1) 0.6 mg/dl (0-1.1) Aspartate Amino 64 IU/L (15-46) 58 IU/L (15-46) Transf (AST/SGOT) Alanine 67 IU/L (13-69) 66 IU/L (13-69) Aminotransferase (A LT/SGPT) Alkaline 49 IU/L (42-121) 46 IU/L (42-121) Phosphatase Total Protein 7.1 g/dl (6.1-8.1) 6.4 g/dl (6.1-8.1) Albumin 4.0 g/dl (3.3-4.9) 3.7 g/dl (3.3-4.9) Globulin 3.10 g/dl (1.3-3.2) 2.70 g/dl (1.3-3.2) Albumin/Globulin 1.29 1.37 Ratio Lipase 104 U/L (23-300) Magnesium Level 1.3 mg/dl (1.7-2.5) Creatine Kinase 77 IU/L (23-200) 76 IU/L (23-200) Creatine Kinase 0.5 0.5 Index Creatinine Kinase 0.42 0.40 MB (Mass) ng/ml (0.0-2.4) ng/ml (0.0-2.4) Troponin I 0.015 < 0.012 ng/ml (0.000-0.120 ng/ml (0.000-0.120 ) ) MADY INTERIANO MD Aug 12, 2018 16:24
[2018-08-12] MEDS ORDERED: HYDROmorphONE 2 MG/ML SYG IV PRN (17:00)
--- NOTE | 2018-08-12 17:19 | RADRPT ---
Vent Rate: 84 bpm RR Interval: 0 msec KS Interval: 174 msec QRS Duration: 132 msec QT Interval: 392 msec QTC Interval: 463 msec P-R-T [place]: 86 - -10 - 71 degrees Normal sinus rhythm Right bundle branch block Abnormal ECG Electronically Signed By: Jessee Khan
[2018-08-12 18:39] VITALS: BP 158/82; PULSE 70
[2018-08-12] MEDS ORDERED: ATORVASTATIN 40 MG TAB PO SCH (21:00)
== END 2018-08-12 21:30 | disposition short-term general hospital (02) | DRG 543 ==
LOC: E/R 23:07 → MS1 08-12 00:41
PROVIDERS: ADMIT Family Medicine; ATTEND Internal Medicine
DX: M84.452A Pathological fracture, left femur, initial encounter for fracture (principal); C34.90 Malignant neoplasm of unspecified part of unspecified bronchus or lung; C79.9 Secondary malignant neoplasm of unspecified site; I10 Essential (primary) hypertension; E78.00 Pure hypercholesterolemia, unspecified; E11.9 Type 2 diabetes mellitus without complications; F17.200 Nicotine dependence, unspecified, uncomplicated
CPT/HCPCS: 36415; 71045; 73550; 73590; 80053; 82550; 82553; 83690; 83735; 84484; 85025; 85610; 85730; 93005; 93306; 96374; 96375; J1170; J2405; J7030; J7040